=== PATIENT | female | born 1995 | race American Indian/Alaskan Native ===

== ENCOUNTER 2016-11-22 17:53 | Emergency (ER) | payer MEDICAID ==
[2016-11-22 17:53] VITALS: BMI 21.3
[2016-11-22 18:03] VITALS: BP 97/66; PULSE 96; RESP 20; TEMP 97.9; O2SAT 96
[2016-11-22] MEDS ORDERED: Albuterol-Ipratrop 3 mg / 0.5 (3 ml) UD INH STA (18:23)
--- NOTE | 2016-11-22 18:28 | C.PDOC ---
History Of Present Illness 21 yo female w/PMHx of asthma BIBA for evaluation of asthma exacerbation for past 2 days. Pt reports, developed more chest tightness associated with dry cough and wheezing. Pt admits, was using Neb tx at home without improvement. Otherwise, pt denies recent illness, fever, chills, headache, dizziness, sore throat, CP, dyspnea, sputum production, abd. pain, N/V/D, denies any other active complaints. At the time of evaluation, pt is not in resp. distress. Time Seen by Provider: 11/22/16 17:59 Chief Complaint (Nursing): Shortness Of Breath History Per: Patient Past Medical History Reviewed: Historical Data, Nursing Documentation, Vital Signs Vital Signs: Last Vital Signs Temp 97.9 F 11/22/16 18:01 Pulse 96 H 11/22/16 18:01 Resp 20 11/22/16 18:01 BP 97/66 L 11/22/16 18:01 Pulse Ox 96 11/22/16 18:50 - Medical History PMH: Asthma Denies: Chronic Kidney Disease Surgical History: No Surg Hx - [facility] Procedures DELIVERY OF PRODUCTS OF CONCEPTION, EXTERNAL APPROACH (12/21/15) INTRODUCE OF OTH THERAP SUBST INTO FEM REPROD, VIA OPENING (12/21/15) Family History: States: No Known Family Hx - Social History Hx Tobacco Use: No Hx Alcohol Use: No Hx Substance Use: No - Immunization History Hx Tetanus Toxoid Vaccination: No Hx Influenza Vaccination: No Hx Pneumococcal Vaccination: No Review Of Systems Except As Marked, All Systems Reviewed And Found Negative. Constitutional: Negative for: Fever, Chills ENT: Positive for: Nose Discharge, Nose Congestion. Negative for: Ear Discharge , Throat Pain Cardiovascular: Negative for: Chest Pain, Edema, Light Headedness Respiratory: Positive for: Cough, Shortness of Breath, Wheezing. Negative for: Sputum Gastrointestinal: Negative for: Nausea, Vomiting, Abdominal Pain, Diarrhea Genitourinary: Negative for: Dysuria Skin: Negative for: Rash Neurological: Negative for: Weakness, Numbness, Altered Mental Status, Headache , Dizziness Physical Exam - Physical Exam Appears: Well, Non-toxic, No Acute Distress Skin: Normal Color, Warm, Dry, No Rash Eye(s): bilateral: PERRL Nose: No Flaring, Discharge (B/L nasal congestion) Throat: Normal, No Erythema, No Exudate, No Drooling Neck: Supple Cardiovascular: Rhythm Regular Respiratory: No Decreased Breath Sounds, No Accessory Muscle Use, No Rales, No Rhonchi, No Stridor, Wheezing (scattered wheezing Right base) Gastrointestinal/Abdominal: Soft, No Tenderness Back: Normal Inspection Extremity: No Pedal Edema Neurological/Psych: Oriented x3, Normal Speech ED Course And Treatment O2 Sat by Pulse Oximetry: 96 Pulse Ox Interpretation: Normal Progress Note: On re-evaluation, pt is afebrile, hemodynamicaly stable. Non- toxic. PusleOx 96% RA. ENT: no acute findings. Lungs: mod improvement in wheezing, BS equal B/L. Abd: benign. Pt has clinical findings c/w asthma exacerbation. Ref. to F/u with PMD, Pulm in 2-3 days for re-eval. return if any new changes. Disposition Counseled Patient/Family Regarding: Diagnosis, Need For Followup, Rx Given - Disposition Referrals: Jun Lugo MD [Staff Provider] - Disposition: HOME/ ROUTINE Disposition Time: 18:45 Condition: STABLE Additional Instructions: Encourage fluids Take medication as prescribed Follow up with PMD and Pulmonology in 2-3 days for re-evaluation. Return to ED if any worsening or new changes. Prescriptions: Albuterol 0.083% [Albuterol 0.083% Inhal Randa (2.5 mg/3 ml) UD] 2.5 mg IH Q6 #50 neb Albuterol HFA [Ventolin HFA 90 mcg/actuation (8 g)] 1 puff IH Q6 #1 inhaler Loratadine [Claritin] 10 mg PO DAILY #20 tab Prednisone [Deltasone] 40 mg PO DAILY #6 tablet Instructions: Asthma (ED) - Clinical Impression Clinical Impression: Asthma
[2016-11-22] MEDS ORDERED: Albuterol-Ipratrop 3 mg / 0.5 (3 ml) UD ONE (18:33)
== END 2016-11-22 18:59 | disposition home or self-care (01) ==
LOC: C.ER 17:53
DX: J45.909 Unspecified asthma, uncomplicated (principal)

== ENCOUNTER 2016-12-16 18:57 | Emergency (ER) | payer MEDICAID ==
[2016-12-16 18:57] VITALS: BMI 21.3
[2016-12-16 19:08] VITALS: O2SAT 100
--- NOTE | 2016-12-16 20:18 | C.PDOC ---
History Of Present Illness 21 y/o F c PMHx asthma p/w chest pain x 3 days. Pain is L sided chest, sharp, occurring at rest. Denies fever, cough, nausea, diaphoresis. Denies leg swelling , recent travel, OCP use, recent surgery/trauma, previous DVT/PE. Time Seen by Provider: 12/16/16 20:02 Chief Complaint (Nursing): Chest Pain Past Medical History Vital Signs: Last Vital Signs Temp 98.5 F 12/16/16 19:07 Pulse 80 12/16/16 19:07 Resp 20 12/16/16 19:07 BP 96/61 L 12/16/16 19:07 Pulse Ox 100 12/16/16 21:31 - Medical History PMH: Asthma Denies: Chronic Kidney Disease - [facility] Procedures DELIVERY OF PRODUCTS OF CONCEPTION, EXTERNAL APPROACH (12/21/15) INTRODUCE OF OTH THERAP SUBST INTO FEM REPROD, VIA OPENING (12/21/15) Family History: States: Unknown Family Hx - Social History Hx Tobacco Use: No Hx Alcohol Use: No Hx Substance Use: No - Immunization History Hx Tetanus Toxoid Vaccination: No Hx Influenza Vaccination: No Hx Pneumococcal Vaccination: No Review Of Systems Except As Marked, All Systems Reviewed And Found Negative. Constitutional: Negative for: Fever Respiratory: Negative for: Shortness of Breath Physical Exam - Physical Exam Additional Physical Exam Comments: Constitutional: No acute distress. Head: Normocephalic. Atraumatic. Eyes: PERRL. ENT: Moist mucous membranes. Neck: Supple. Cardiovascular: Regular rate. Radial pulse 2+ bilaterally. Chest: No tenderness. Respiratory: Clear to auscultation bilaterally. GI: Soft. Nontender. Nondistended. Back: No CVA tenderness. Musculoskeletal: No tenderness or swelling of extremities. Skin: No rash. Neurologic: Alert, no focal deficit. ED Course And Treatment - Laboratory Results Result Diagrams: 12/16/16 20:30 12/16/16 20:30 O2 Sat by Pulse Oximetry: 100 Medical Decision Making Medical Decision Making: EKG Sinus rhythm, 70 bpm, no ST elevations. PERC negative. Will check labs, CXR. Likely d/c, f/u PMD. CXR negative for infiltrate, PTX, rib fracture. Labs unremarkable. Will discharge home, f/u PMD, return to ER for worsening pain , dyspnea, cough, fever. Disposition - Disposition Disposition: HOME/ ROUTINE Disposition Time: 21:31 Condition: STABLE Instructions: Chest Pain (ED) - Clinical Impression Clinical Impression: Chest pain
[2016-12-16 20:40] LABS: BASO % 0.5 % (0.0-2.0); EOS # 0.2 K/uL (0.0-0.7); EOS % 4.5 % (0.0-4.0); LYMPH % 51.1 % (20.0-40.0); MEAN CORPUSCULAR HEMOGLOBIN 27.4 pg (27.0-31.0); MEAN CORPUSCULAR HGB CONC 32.2 g/dL (33.0-37.0); MEAN PLATELET VOLUME 7.5 fL (7.2-11.7); MONO # 0.3 K/uL (0.0-0.8); MONO % 8.2 % (0.0-10.0); NRBC % 0.1 % (0.0-2.0); RED CELL DISTRIBUTION WIDTH 13.7 % (11.5-14.5)
[2016-12-16 20:47] LABS: MEAN CELL VOLUME 85.3 fL (81.0-99.0)
[2016-12-16 20:50] LABS: CHLORIDE 104 mmol/L (98-107); POTASSIUM 3.3 mmol/L (3.6-5.2); SODIUM 143 mmol/L (132-148)
[2016-12-16 20:52] LABS: BILIRUBIN,TOTAL 0.7 mg/dL (0.2-1.3); GFR AFRICAN-AMERICAN > 60
[2016-12-16 20:53] LABS: ALB/GLOB RATIO 1.1 (1.0-2.1); ALKALINE PHOSPHATASE 43 U/L (38-126); ALT/SGPT 23 U/L (9-52); AST/SGOT 26 U/L (14-36); BLOOD UREA NITROGEN 7 mg/dL (7-17); CALCIUM 9.1 mg/dl (8.6-10.4); CARBON DIOXIDE 29 mmol/L (22-30); GLUCOSE,RANDOM 89 mg/dL (65-105); TOTAL PROTEIN 7.6 g/dL (6.3-8.3)
[2016-12-16 21:49] VITALS: BP 105/68; PULSE 62; RESP 18; TEMP 98.6
--- NOTE | 2016-12-17 08:53 | RAD ---
HISTORY: chest pain COMPARISON: No prior. TECHNIQUE: Chest PA and lateral FINDINGS: LUNGS: No active pulmonary disease. PLEURA: No significant pleural effusion identified. No pneumothorax apparent. CARDIOVASCULAR: Normal. OSSEOUS STRUCTURES: No significant abnormalities. VISUALIZED UPPER ABDOMEN: Normal. OTHER FINDINGS: None. IMPRESSION: No active disease.
--- NOTE | 2016-12-18 14:27 | CARD ---
APPROVED REPORT EKG Measurement Heart [id number] <Conclusion> Normal sinus rhythm RSR' or QR pattern in V1 suggests right ventricular conduction delay Abnormal ECG
== END 2016-12-16 21:48 | disposition home or self-care (01) ==
LOC: C.ER 18:57
DX: R07.9 Chest pain, unspecified (principal)
CPT/HCPCS: 71020; 80053; 82550; 82553; 84484; 85025; 96374; 99284; J1885

== ENCOUNTER 2017-03-12 16:39 | Emergency (ER) | payer MEDICAID ==
[2017-03-12 17:24] VITALS: BMI 17.2
[2017-03-12 17:29] VITALS: BP 108/72; PULSE 86; RESP 18; TEMP 98.8; O2SAT 98
--- NOTE | 2017-03-12 18:05 | C.PDOC ---
History Of Present Illness 21 yr old female presents to the ER stating she is late with her menses and thinks she may be . She admits to mild suprapubic discomfort. LMP was 02/06 - she did not take any home test. Patient denies fever, nausea, vomiting, diarrhea, dysuria, vaginal bleeding/discharge. Time Seen by Provider: 03/12/17 16:56 Chief Complaint (Nursing): Abdominal Pain History Per: Patient History/Exam Limitations: no limitations Onset/Duration Of Symptoms: Days Severity: Mild Past Medical History Reviewed: Historical Data, Nursing Documentation, Vital Signs Vital Signs: Last Vital Signs Temp 98.8 F 03/12/17 17:26 Pulse 86 03/12/17 17:26 Resp 18 03/12/17 17:26 BP 108/72 03/12/17 17:26 Pulse Ox 98 03/12/17 18:44 - Medical History PMH: Asthma - [facility] Procedures DELIVERY OF PRODUCTS OF CONCEPTION, EXTERNAL APPROACH (12/21/15) INTRODUCE OF OTH THERAP SUBST INTO FEM REPROD, VIA OPENING (12/21/15) Family History: States: No Known Family Hx - Social History Hx Tobacco Use: No Hx Alcohol Use: No Hx Substance Use: No - Immunization History Hx Tetanus Toxoid Vaccination: No Hx Influenza Vaccination: No Hx Pneumococcal Vaccination: No Review Of Systems Except As Marked, All Systems Reviewed And Found Negative. Constitutional: Negative for: Fever Gastrointestinal: Positive for: Abdominal Pain (Suprapubic discomfort). Negative for: Nausea, Vomiting, Diarrhea Genitourinary: Negative for: Dysuria, Hematuria, Vaginal Discharge, Vaginal Bleeding Neurological: Negative for: Weakness, Numbness Physical Exam - Physical Exam Appears: Well, Non-toxic, No Acute Distress Skin: Normal Color, Warm, Dry, No Rash Oral Mucosa: Moist Cardiovascular: Rhythm Regular Respiratory: Normal Breath Sounds, No Rales, No Rhonchi, No Stridor, No Wheezing Gastrointestinal/Abdominal: Normal Exam, Bowel Sounds, Soft, No Tenderness Back: No CVA Tenderness Extremity: Normal ROM, No Swelling Neurological/Psych: Oriented x3 ED Course And Treatment O2 Sat by Pulse Oximetry: 98 (RA) Pulse Ox Interpretation: Normal Progress Note: PLAN: Upreg and UA ordered and reviewed. UPreg (+). On exam, abdomen is soft and nontender. UA shows mild UTI - Rxs for vitamins and Macrobid given. Patient instructed to follow up with her client administrator within 1 week. She understands she should return to ED if she has any concerning symptoms. Reevaluation Time: 18:05 Reassessment Condition: Improved Disposition Counseled Patient/Family Regarding: Diagnosis, Need For Followup, Rx Given - Disposition Referrals: [facility] [Outside] [facility] [Outside] Jun Lugo MD [Staff Provider] - Disposition: HOME/ ROUTINE Disposition Time: 18:05 Condition: STABLE Additional Instructions: FOLLOW UP WITH YOUR SPECIAL DIET COOK WITHIN 1 WEEK RETURN TO ER IF YOU HAVE ANY CONCERNING SYMPTOMS Prescriptions: Nitrofurantoin Macrocrystals [Macrobid] 1 cap PO BID #14 cap Multivit/Folic Acid/I [ Plus] 1 tab PO DAILY #30 tab Instructions: (ED), Urinary Tract Infection in (ED) Forms: [employer] (Welsh) Print Language: JAPANESE - POA Present On Arrival: None - Clinical Impression Clinical Impression: , UTI (urinary tract infection) - Scribe Statement The provider has reviewed the documentation as recorded by the Annabelleibe Karo Thayer Provider Attestation: All medical record entries made by the Scribe were at my direction and personally dictated by me. I have reviewed the chart and agree that the record accurately reflects my personal performance of the history, physical exam, medical decision making, and the department course for this patient. I have also personally directed, reviewed, and agree with the discharge instructions and disposition.
[2017-03-12 18:06] LABS: RBC URINE 1 /hpf (0-3); URINE BACTERIA RARE (<OCC); URINE BILIRUBIN NEGATIVE (NEGATIVE); URINE BLOOD NEGATIVE (NEGATIVE); URINE COLOR Yellow (YELLOW); URINE GLUCOSE (UA) NORMAL (Normal); URINE KETONE NEGATIVE (NEGATIVE); URINE LEUKOCYTE ESTERASE NEG Leu/uL (Negative); URINE PROTEIN 1+ mg/dL (NEGATIVE); URINE UROBILINOGEN NORMAL mg/dL (0.2-1.0); WBC URINE 2 /hpf (0-5)
== END 2017-03-12 18:14 | disposition home or self-care (01) ==
LOC: C.ER 16:39
DX: O23.41 Unspecified infection of urinary tract in pregnancy, first trimester (principal); Z3A.00 Weeks of gestation of pregnancy not specified

== ENCOUNTER 2017-06-15 18:51 | Emergency (ER) | payer MEDICAID ==
[2017-06-15 18:52] VITALS: BMI 17.2
[2017-06-15 19:28] VITALS: BP 112/77; PULSE 80; RESP 16; TEMP 98.6; O2SAT 99
[2017-06-15] MEDS ORDERED: Permethrin 1% Kit 59 ML BOTTLE TOP STA (19:31)
--- NOTE | 2017-06-15 19:54 | C.PDOC ---
History Of Present Illness 21yo female brought to ED by EMS for evaluation of lice in her hair. Patient denies any medical complaints. Time Seen by Provider: 06/15/17 19:31 Chief Complaint (Nursing): Medical Clearance History Per: Patient History/Exam Limitations: no limitations Past Medical History Reviewed: Historical Data, Nursing Documentation, Vital Signs Vital Signs: Last Vital Signs Temp 98.6 F 06/15/17 19:26 Pulse 80 06/15/17 19:26 Resp 16 06/15/17 19:26 BP 112/77 06/15/17 19:26 Pulse Ox 99 06/15/17 19:54 - Medical History PMH: Asthma Denies: Chronic Kidney Disease - [facility] Procedures DELIVERY OF PRODUCTS OF CONCEPTION, EXTERNAL APPROACH (12/21/15) INTRODUCE OF OTH THERAP SUBST INTO FEM REPROD, VIA OPENING (12/21/15) Family History: States: Unknown Family Hx - Social History Hx Tobacco Use: No Hx Alcohol Use: No Hx Substance Use: No - Immunization History Hx Tetanus Toxoid Vaccination: No Hx Influenza Vaccination: No Hx Pneumococcal Vaccination: No Review Of Systems Constitutional: Positive for: Other (lice in hair) Physical Exam - Physical Exam Appears: Non-toxic, No Acute Distress Skin: Normal Color Head: Other (mild lice infestation in hair) ED Course And Treatment O2 Sat by Pulse Oximetry: 99 Medical Decision Making Medical Decision Making: lice in hair Disposition Doctor Will See Patient In The: Office Counseled Patient/Family Regarding: Studies Performed, Diagnosis - Disposition Disposition: HOME/ ROUTINE Disposition Time: 19:54 Condition: GOOD Instructions: Body Lice (ED) Forms: [employer] (Upper Sorbian) - Clinical Impression Clinical Impression: Lice infestation - Scribe Statement The provider has reviewed the documentation as recorded by the Alpesh Hodge Provider Attestation: All medical record entries made by the Alpesh were at my direction and personally dictated by me. I have reviewed the chart and agree that the record accurately reflects my personal performance of the history, physical exam, medical decision making, and the department course for this patient. I have also personally directed, reviewed, and agree with the discharge instructions and disposition.
== END 2017-06-15 20:18 | disposition home or self-care (01) ==
LOC: C.ER 18:51
DX: B85.2 Pediculosis, unspecified (principal)

== ENCOUNTER 2017-06-16 20:43 | Emergency (ER) | payer MEDICAID ==
[2017-06-16 20:43] VITALS: BMI 17.2
[2017-06-16 21:10] VITALS: BP 104/71; PULSE 93; TEMP 98; O2SAT 100
--- NOTE | 2017-06-16 21:34 | C.PDOC ---
History Of Present Illness 21 yr old female presents to the ER stating she was seen at [facility] yesterday and was diagnosed with head lice. Patient was given treatment to use at home and states she has used it twice so far. Patient reports she lives in a long term and needs a clearance to return. Patient denies fever, headache or rash. Time Seen by Provider: 06/16/17 21:15 Chief Complaint (Nursing): Abnormal Skin Integrity History Per: Patient History/Exam Limitations: no limitations Onset/Duration Of Symptoms: Days Past Medical History Reviewed: Historical Data, Nursing Documentation, Vital Signs Vital Signs: Last Vital Signs Temp 98.0 F 06/16/17 21:08 Pulse 93 H 06/16/17 21:08 Resp 18 06/16/17 21:08 BP 104/71 06/16/17 21:08 Pulse Ox 100 06/16/17 21:37 - Medical History PMH: Asthma - [facility] Procedures DELIVERY OF PRODUCTS OF CONCEPTION, EXTERNAL APPROACH (12/21/15) INTRODUCE OF OTH THERAP SUBST INTO FEM REPROD, VIA OPENING (12/21/15) Family History: States: No Known Family Hx - Social History Hx Tobacco Use: No Hx Alcohol Use: No Hx Substance Use: No - Immunization History Hx Tetanus Toxoid Vaccination: No Hx Influenza Vaccination: No Hx Pneumococcal Vaccination: No Review Of Systems Except As Marked, All Systems Reviewed And Found Negative. Constitutional: Negative for: Fever Skin: Negative for: Rash Neurological: Negative for: Headache Physical Exam - Physical Exam Appears: Non-toxic, No Acute Distress Skin: Warm, Dry, No Rash, Other (Scalp appears clear. No lice visulized.) Head: Atraumatic, Normacephalic Eye(s): bilateral: Normal Inspection, PERRL, EOMI Extremity: Normal ROM, No Swelling Neurological/Psych: Oriented x3, Normal Speech ED Course And Treatment O2 Sat by Pulse Oximetry: 100 (RA) Pulse Ox Interpretation: Normal Progress Note: Scalp appears clear. No lice is visulized. Patient is cleared to return to the long term. 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 - Scribe Statement The provider has reviewed the documentation as recorded by the Scribe Karo Thayer All medical record entries made by the Scribe were at my direction and personally dictated by me. I have reviewed the chart and agree that the record accurately reflects my personal performance of the history, physical exam, medical decision making, and the department course for this patient. I have also personally directed, reviewed, and agree with the discharge instructions and disposition.
[2017-06-16 22:02] VITALS: RESP 20
== END 2017-06-16 22:01 | disposition home or self-care (01) ==
LOC: C.ER 20:43
DX: Z00.8 Encounter for other general examination (principal)

== ENCOUNTER 2017-08-09 19:37 | Emergency (ER) | payer MEDICAID ==
[2017-08-09 19:38] VITALS: BMI 17.2
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
[2017-08-09 21:51] VITALS: BP 103/63; PULSE 90; RESP 20; TEMP 99.6; O2SAT 100
== END 2017-08-09 21:51 | disposition home or self-care (01) ==
LOC: C.ER 19:37 → EDBD 19:37 → SUPCPDRO 19:37 → C.ER 21:51
DX: S05.32XA Ocular laceration without prolapse or loss of intraocular tissue, left eye, initial encounter (principal); S09.90XA Unspecified injury of head, initial encounter; Y04.0XXA Assault by unarmed brawl or fight, initial encounter; J11.1 Influenza due to unidentified influenza virus with other respiratory manifestations

== ENCOUNTER 2017-10-25 01:50 | Emergency (ER) | payer MEDICAID ==
[2017-10-25 01:51] VITALS: BMI 17.2
[2017-10-25 02:20] LABS: SQUAMOUS EPITHIAL < 1 /hpf (0-5); URINE BILIRUBIN NEGATIVE (NEGATIVE); URINE BLOOD NEGATIVE (NEGATIVE); URINE CLARITY Clear (Clear); URINE COLOR Yellow (YELLOW); URINE GLUCOSE (UA) NORMAL (Normal); URINE LEUKOCYTE ESTERASE NEG Leu/uL (Negative); URINE PROTEIN 1+ mg/dL (NEGATIVE)
[2017-10-25 02:27] LABS: HCG,QUALITATIVE URINE NEGATIVE (NEGATIVE)
--- NOTE | 2017-10-25 02:28 | C.PDOC ---
History Of Present Illness 22 yo female come in for evaluation of gradual onset of suprapubic pain for past few hours associated with nausea. Pain is constant, localized, no change with food intake. Pt denies fever, chills, recent illness, sore throat, cough, dyspnea, CP, sOB, V/D, melena, UTI sx, vaginal irritation or discharges. Ambulate to ED for evaluation, not in nay apparent distress. Time Seen by Provider: 10/25/17 02:05 Chief Complaint (Nursing): Abdominal Pain History Per: Patient Past Medical History Reviewed: Historical Data, Nursing Documentation, Vital Signs Vital Signs: Last Vital Signs Temp 98.6 F 10/25/17 04:07 Pulse 83 10/25/17 04:07 Resp 16 10/25/17 04:07 BP 120/76 10/25/17 04:07 Pulse Ox 100 10/25/17 04:07 - Medical History PMH: Asthma Denies: Chronic Kidney Disease Surgical History: Denies: Appendectomy - [facility] Procedures DELIVERY OF PRODUCTS OF CONCEPTION, EXTERNAL APPROACH (12/21/15) INTRODUCE OF OTH THERAP SUBST INTO FEM REPROD, VIA OPENING (12/21/15) Family History: States: Unknown Family Hx - Social History Hx Tobacco Use: No Hx Alcohol Use: No Hx Substance Use: No - Immunization History Hx Tetanus Toxoid Vaccination: No Hx Influenza Vaccination: No Hx Pneumococcal Vaccination: No Review Of Systems Except As Marked, All Systems Reviewed And Found Negative. Constitutional: Negative for: Fever, Chills ENT: Negative for: Throat Pain Cardiovascular: Negative for: Chest Pain Respiratory: Negative for: Cough, Sputum, Wheezing Gastrointestinal: Positive for: Nausea, Abdominal Pain. Negative for: Vomiting , Diarrhea Genitourinary: Negative for: Dysuria, Incontinence Musculoskeletal: Negative for: Neck Pain, Back Pain Skin: Negative for: Rash Neurological: Negative for: Altered Mental Status, Headache, Dizziness Physical Exam - Physical Exam Appears: Well, Non-toxic, No Acute Distress Skin: Normal Color, Warm, Dry, No Rash Head: Normacephalic Eye(s): bilateral: PERRL Nose: No Flaring, No Discharge Oral Mucosa: Moist Throat: No Erythema Neck: Trachea Midline, Supple Cardiovascular: Rhythm Regular Respiratory: No Decreased Breath Sounds, No Accessory Muscle Use, No Stridor, No Wheezing Gastrointestinal/Abdominal: Soft, Tenderness (suprapubic, mod), No Distention, No Guarding, No Rebound Back: No CVA Tenderness Extremity: Normal ROM, No Deformity, No Swelling Neurological/Psych: Oriented x3, Normal Speech ED Course And Treatment - Laboratory Results Result Diagrams: 10/25/17 03:04 10/25/17 03:04 Lab Interpretation: No Acute Changes Urine POC: Negative O2 Sat by Pulse Oximetry: 98 Pulse Ox Interpretation: Normal Progress Note: On re-evaluation, pt is resting comfortably, not in any apaprent distress. AFebrile, hemodynamicaly stable. NOn-toxic. Tolerate Po well in ED. PulseOx 98% RA. ENT: no acute findings. Uvula midline, no edema. neck: Supple , (-) meningeal sign. Lungs: CTA B/L, BS equal B/L. ABd: benign, (-) guarding , (-) rebound, (-) RLQ tenderness. Back: (-) CVA tenderness. Neurologicaly intact. Blood work review and appears normal. UA: (+) WBC, RBC. results review and discussed with pt. Pt advised on signof apendicitis -return to ED at any time if any worsening or new changes in abd. pain. ref. to F/u with PMD in 1-2 days for re-eval, Patient understand and agrees with plan. Disposition Counseled Patient/Family Regarding: Studies Performed, Diagnosis, Need For Followup, Rx Given - Disposition Referrals: Jun Lugo MD [Staff Provider] - Disposition: HOME/ ROUTINE Disposition Time: 03:31 Condition: STABLE Prescriptions: Nitrofurantoin Macrocrystals [Macrobid] 1 cap PO BID #14 cap Instructions: Urinary Tract Infections in Adults Forms: [facility] (Greek) - Clinical Impression Clinical Impression: UTI (urinary tract infection)
[2017-10-25] MEDS ORDERED: Sodium Chloride 0.9% 1,000 ML IV ONE (02:30)
[2017-10-25 03:11] LABS: BASO % 0.1 % (0.0-2.0); EOS # 0.2 K/uL (0.0-0.7); EOS % 1.7 % (0.0-4.0); HEMOGLOBIN 11.9 g/dL (11.0-16.0); LYMPH # 1.6 K/uL (1.0-4.3); MEAN CELL VOLUME 86.5 fL (81.0-99.0); MEAN CORPUSCULAR HEMOGLOBIN 28.4 pg (27.0-31.0); MEAN CORPUSCULAR HGB CONC 32.8 g/dL (33.0-37.0); MEAN PLATELET VOLUME 8.1 fL (7.2-11.7); MONO # 0.8 K/uL (0.0-0.8); MONO % 7.3 % (0.0-10.0); NEUT # 8.1 K/uL (1.8-7.0); NEUT % 75.9 % (50.0-75.0); RBC 4.19 Mil/uL (3.80-5.20); RED CELL DISTRIBUTION WIDTH 13.3 % (11.5-14.5); WHITE BLOOD COUNT 10.6 K/uL (4.8-10.8)
[2017-10-25 03:17] LABS: BLOOD UREA NITROGEN 14 mg/dL (7-17); CALCIUM 9.1 mg/dl (8.6-10.4); GFR AFRICAN-AMERICAN > 60; GFR NON-AFRICAN AMERICAN > 60
[2017-10-25 04:08] VITALS: BP 120/76; PULSE 83; RESP 16; TEMP 98.6
[2017-10-25 06:07] VITALS: O2SAT 98
== END 2017-10-25 04:12 | disposition home or self-care (01) ==
LOC: C.ER 01:50
DX: N39.0 Urinary tract infection, site not specified (principal)
CPT/HCPCS: 80048; 81001; 84703; 85025; 87086; 96361; 96374; 96375; 99284; J1885; J2405; J7040

== ENCOUNTER 2017-12-22 21:56 | Emergency (ER) | payer MEDICAID ==
[2017-12-22 21:56] VITALS: BMI 17.2
[2017-12-22 22:05] VITALS: O2SAT 98
[2017-12-22] MEDS ORDERED: Lidocaine 2% Inj (20ml) INFIL ONE (22:44)
--- NOTE | 2017-12-22 23:41 | C.PDOC ---
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 Quality: Positive for: "Pain" Additional History Per: Prior Records Past Medical History Reviewed: Historical Data, Nursing Documentation, Vital Signs Vital Signs: Last Vital Signs Temp 97 F L 12/22/17 22:02 Pulse 97 H 12/22/17 22:02 Resp 20 12/22/17 22:02 BP Pulse Ox 98 12/22/17 22:02 - Medical History PMH: Asthma - [facility] Procedures DELIVERY OF PRODUCTS OF CONCEPTION, EXTERNAL APPROACH (12/21/15) INTRODUCE OF OTH THERAP SUBST INTO FEM REPROD, VIA OPENING (12/21/15) Family History: States: Unknown Family Hx - Social History Hx Tobacco Use: No Hx Alcohol Use: No Hx Substance Use: No - Immunization History Hx Tetanus Toxoid Vaccination: No Hx Influenza Vaccination: No Hx Pneumococcal Vaccination: No Review Of Systems Except As Marked, All Systems Reviewed And Found Negative. Constitutional: Negative for: Fever ENT: Positive for: Mouth Pain. Negative for: Throat Pain Cardiovascular: Negative for: Chest Pain Respiratory: Negative for: Shortness of Breath Gastrointestinal: Negative for: Vomiting, Abdominal Pain Musculoskeletal: Negative for: Neck Pain Skin: Negative for: Rash Neurological: Negative for: Weakness, Numbness, Headache, Dizziness Physical Exam - Physical Exam Appears: Non-toxic, No Acute Distress Skin: Normal Color, Warm, Dry, No Rash Head: Atraumatic, Normacephalic Eye(s): bilateral: PERRL, EOMI Lips: Other (Wound on upper and lower lip, not involving vermilion border.) Teeth: Avulsed (two upper incisors angulated inward) Throat: Normal Neck: Normal ROM, No Midline Cervical Tenderness, No Step Off Deformity, Supple Chest: Symmetrical, No Deformity Cardiovascular: Rhythm Regular Respiratory: Normal Breath Sounds, No Accessory Muscle Use Gastrointestinal/Abdominal: Soft, No Tenderness Extremity: Normal ROM, No Deformity Neurological/Psych: Oriented x3, Normal Motor, Normal Sensation ED Course And Treatment O2 Sat by Pulse Oximetry: 98 Pulse Ox Interpretation: Normal Progress Note: After applying local anesthesia using 2% lidocaine, the two upper incisors were reduced back with good alignment. The teeth were then fixed to the adjoining teeth with Dermabond. Reassessment Condition: Improved Disposition Counseled Patient/Family Regarding: Studies Performed, Diagnosis, Need For Followup, Rx Given - Disposition Referrals: Meche Fulton DMD [Staff Provider] - Disposition: HOME/ ROUTINE Disposition Time: 23:45 Condition: STABLE Additional Instructions: Soft diet only. Follow up with a Dentist as soon as possible tomorrow for further evaluation and treatment. Return to the ER if you develop worsening of symptoms or if you have any other concerns. Prescriptions: Amoxicillin 875 mg PO BID #20 tab Ibuprofen [Motrin Tab] 600 mg PO Q8 PRN #30 tab PRN Reason: Pain, Moderate (4-7) Instructions: Fractured Tooth (DC) Forms: [employer] (Vietnamese) - Clinical Impression Clinical Impression: Avulsion of tooth due to trauma
[2017-12-23] MEDS ORDERED: Amoxicillin-Clav 500-125 mg Tab PO ONE
[2017-12-23 00:06] VITALS: BP 124/84; PULSE 88; RESP 14; TEMP 98
== END 2017-12-23 00:08 | disposition home or self-care (01) ==
LOC: C.ER 21:56
DX: S03.2XXA Dislocation of tooth, initial encounter (principal); W10.9XXA Fall (on) (from) unspecified stairs and steps, initial encounter
CPT/HCPCS: 96372; 99285; J1885

== ENCOUNTER 2018-05-13 13:47 | Emergency (ER) | payer MEDICAID ==
[2018-05-13 13:58] VITALS: BMI 19.7
[2018-05-13] MEDS ORDERED: Albuterol-Ipratrop 3 mg / 0.5 (3 ml) UD INH STA (14:49)
--- NOTE | 2018-05-13 14:50 | C.PDOC ---
History Of Present Illness 22 y/o female with PMH of asthma presents to the ED c/o chest pain x 1 day. Pt describes pain as sharp located on the right side of her chest worse with inspiration that began last night. Associated symptoms of intermittent lighthea dedness, diarrhea, lower abdominal cramping, and headache. Tolerating PO per baseline but does not drink much water throughout the day. Has not taken any medication for pain. Positive sick contact, as pt presents to the ED with her son, who is also a patient with complaints of URI. Denies fever, chills, cough, nasal congestion, SOB, nausea, vomiting, back pain, urinary symptoms, rash, neck pain, diaphoresis, palpitations, jaw pain, arm pain. Time Seen by Provider: 05/13/18 14:38 Chief Complaint (Nursing): Chest Pain Past Medical History Reviewed: Historical Data, Nursing Documentation, Vital Signs - Medical History PMH: Asthma Denies: Chronic Kidney Disease Surgical History: Denies: Appendectomy - [facility] Procedures DELIVERY OF PRODUCTS OF CONCEPTION, EXTERNAL APPROACH (12/21/15) INTRODUCE OF OTH THERAP SUBST INTO FEM REPROD, VIA OPENING (12/21/15) Family History: States: Unknown Family Hx - Social History Hx Tobacco Use: No Hx Alcohol Use: No Hx Substance Use: No - Immunization History Hx Tetanus Toxoid Vaccination: No Hx Influenza Vaccination: No Hx Pneumococcal Vaccination: No Review Of Systems Except As Marked, All Systems Reviewed And Found Negative. Constitutional: Negative for: Fever, Chills Eyes: Negative for: Vision Change ENT: Negative for: Ear Pain, Nose Discharge, Nose Congestion, Throat Pain, Throat Swelling Cardiovascular: Positive for: Chest Pain, Light Headedness. Negative for: Palpitations, Edema Respiratory: Negative for: Cough, Shortness of Breath, Wheezing Gastrointestinal: Positive for: Abdominal Pain, Diarrhea. Negative for: Nausea, Vomiting, Constipation Genitourinary: Negative for: Dysuria, Frequency, Incontinence, Vaginal Discharge, Vaginal Bleeding, Pelvic Pain Musculoskeletal: Negative for: Neck Pain, Shoulder Pain, Arm Pain, Back Pain Skin: Negative for: Rash Neurological: Positive for: Headache. Negative for: Weakness, Numbness, Dizziness Physical Exam - Physical Exam Appears: Well, Non-toxic, No Acute Distress Skin: Normal Color, Warm, Dry Head: Atraumatic, Normacephalic, No Tenderness Eye(s): bilateral: Normal Inspection, PERRL, EOMI Ear(s): Bilateral: Normal Nose: Normal Oral Mucosa: Moist Throat: Normal, No Erythema, No Exudate, No Drooling Neck: Normal, Normal ROM, No Other (meningeal signs) Lymphatic: Normal Exam, No Adenopathy Cardiovascular: Rhythm Regular Respiratory: Normal Breath Sounds, Decreased Breath Sounds (right side), No Rales, No Rhonchi, No Wheezing Gastrointestinal/Abdominal: Normal Exam, Bowel Sounds (normoactive), Soft, No Tenderness Back: Normal Inspection, No CVA Tenderness, No Paraspinal Tenderness Extremity: Normal ROM, No Tenderness, No Pedal Edema, No Calf Tenderness, Capillary Refill (<2s), No Deformity, No Swelling Extremity: Bilateral: Atraumatic, No Pedal Edema, Normal Color And Temperature, Normal ROM Pulses: Left Radial: Normal, Right Radial: Normal (rate 76), Left Dorsalis Pedis: Normal, Right Dorsalis Pedis: Normal Neurological/Psych: Oriented x3, Normal Speech, Normal Cognition, Normal Cranial Nerves, Normal Motor, Normal Sensation Gait: Steady ED Course And Treatment - Laboratory Results Result Diagrams: 05/13/18 15:15 05/13/18 15:15 O2 Sat by Pulse Oximetry: 100 (RA) Pulse Ox Interpretation: Normal - Other Rad CXR X-Ray: Viewed By Me, Read By Radiologist Interpretation: FINDINGS: LUNGS: Dense opacification of the medial right lower lobe suspicious for consolidation such as pneumonia. Please note that chest x- ray has limited sensitivity for the detection of pulmonary masses. PLEURA: No significant pleural effusion identified. No definite pneumothorax . CARDIOVASCULAR: The cardiomediastinal silhouette appears within normal limits of size. No atherosclerotic calcification present. OSSEOUS STRUCTURES: No acute osseous abnormality identified. VISUALIZED UPPER ABDOMEN: Unremarkable. OTHER FINDINGS: None. IMPRESSION: Dense opacification of the medial right lower lobe suspicious for consolidation such as pneumonia. Correlate clinically. If indicated, CT of the chest may be considered. Otherwise, recommend follow-up to assess for complete resolution upon completion of treatment. Medical Decision Making Medical Decision Making: Initial Plan: * EKG * CBC, CMP, Troponin, D-dimer * UA, culture * IVF * Duoneb * Orthostatics EKG: rate 75; NSR; normal intervals; no ST elevation or signs of ischemia Reviewed by ED attending, viewed by me CBC: wnl CMP: BUN 19, otherwise unremarkable Troponin: neg D-Dimer: neg UA: ketones and protein, otherwise unremarkable Orthostatics positive for lightheadedness on standing Will hydrate with IVF On re-evaluation patient states that she is feeling much better after fluid administration and would like to go home. Patient is well appearing and tolerating PO without difficulty. Vital signs stable, re-check of pulse 76 on right radial while patient laying supine. Case and diagnostic results discussed with Dr. Beltran, who recommends discharge home with Levaquin prescription and followup with primary doctor for re-evaluation and repeat CXR. States no need for any further workup at this time. Plan of care discussed with patient, and strict instructions given regarding prescriptions, importance of follow up, and signs to return to Emergency Department, to include fever, chills, vomiting, difficulty breathing or any other new/worsening symptoms. Patient verbalizes understanding of discussion. Patient A&Ox3, ambulating with steady gait, stable for discharge home. Impression: Pneumonia Disposition Discussed With DrMati: Christine Beltran Comment: Recommends discharge home with Levaquin prescription and followup with primary doctor. - Disposition Referrals: [facility] at [facility] [Outside] Disposition: HOME/ ROUTINE Disposition Time: 17:30 Condition: IMPROVED Additional Instructions: Increase fluids to rehydrate Take antibiotic once daily for 4 days starting tomorrow Use albuterol inhaler 2 puffs every 6 hours Followup with primary doctor within 2 days Return to ER for any new/worsening symptoms Prescriptions: Ibuprofen [Motrin Tab] 600 mg PO Q8H PRN #30 tab PRN Reason: Pain, Moderate (4-7) levoFLOXacin [Levaquin] 750 mg PO DAILY #5 tab Instructions: Pneumonia in Adults Forms: [facility] (Sinhala), Work Excuse, General Discharge Instructions - Clinical Impression Clinical Impression: Pneumonia - 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 - Scribe Statement The provider has reviewed the documentation as recorded by the Scribe (Danisha Arredondo) All medical record entries made by the Scribe were at my direction and personally dictated by me. I have reviewed the chart and agree that the record accurately reflects my personal performance of the history, physical exam, medical decision making, and the department course for this patient. I have also personally directed, reviewed, and agree with the discharge instructions and disposition.
[2018-05-13] MEDS ORDERED: Sodium Chloride 0.9% 1,000 ML IV ONE ×2 (15:00→15:52)
--- NOTE | 2018-05-13 15:08 | RAD ---
HISTORY: chest pain COMPARISON: Chest x-ray performed 12/16/16 TECHNIQUE: Chest PA and lateral FINDINGS: LUNGS: Dense opacification of the medial right lower lobe suspicious for consolidation such as pneumonia. Please note that chest x-ray has limited sensitivity for the detection of pulmonary masses. PLEURA: No significant pleural effusion identified. No definite pneumothorax . CARDIOVASCULAR: The cardiomediastinal silhouette appears within normal limits of size. No atherosclerotic calcification present. OSSEOUS STRUCTURES: No acute osseous abnormality identified. VISUALIZED UPPER ABDOMEN: Unremarkable. OTHER FINDINGS: None. IMPRESSION: Dense opacification of the medial right lower lobe suspicious for consolidation such as pneumonia. Correlate clinically. If indicated, CT of the chest may be considered. Otherwise, recommend follow-up to assess for complete resolution upon completion of treatment.
[2018-05-13 15:20] LABS: BASO % 0.5 % (0.0-2.0); HEMOGLOBIN 11.6 g/dL (11.0-16.0); LYMPH # 1.5 K/uL (1.0-4.3); LYMPH % 36.5 % (20.0-40.0); MEAN CELL VOLUME 85.4 fL (81.0-99.0); MEAN CORPUSCULAR HEMOGLOBIN 28.2 pg (27.0-31.0); MEAN PLATELET VOLUME 7.9 fL (7.2-11.7); MONO # 0.4 K/uL (0.0-0.8); MONO % 9.5 % (0.0-10.0); NEUT # 2.2 K/uL (1.8-7.0); NEUT % 52.5 % (50.0-75.0); NRBC % 0.1 % (0.0-2.0); RBC 4.12 Mil/uL (3.80-5.20); RED CELL DISTRIBUTION WIDTH 14.3 % (11.5-14.5); WHITE BLOOD COUNT 4.2 K/uL (4.8-10.8)
[2018-05-13] MEDS ORDERED: Albuterol-Ipratrop 3 mg / 0.5 (3 ml) UD ONE (15:23)
[2018-05-13 15:27] LABS: SQUAMOUS EPITHIAL 1 /hpf (0-5); URINE BILIRUBIN NEGATIVE (NEGATIVE); URINE BLOOD NEGATIVE (NEGATIVE); URINE CLARITY Hazy (Clear); URINE COLOR Amber (YELLOW); URINE GLUCOSE (UA) NORMAL (Normal); URINE LEUKOCYTE ESTERASE NEG Leu/uL (Negative); URINE PROTEIN 2+ mg/dL (NEGATIVE); URINE UROBILINOGEN NORMAL mg/dL (0.2-1.0)
[2018-05-13 15:35] LABS: ALB/GLOB RATIO 1.3 (1.0-2.1); ALBUMIN 4.6 g/dL (3.5-5.0); ALT/SGPT 39 U/L (9-52); AST/SGOT 36 U/L (14-36); BLOOD UREA NITROGEN 19 mg/dL (7-17); CALCIUM 9.4 mg/dl (8.6-10.4); GFR NON-AFRICAN AMERICAN > 60
[2018-05-13 15:58] VITALS: RESP 20
[2018-05-13] MEDS ORDERED: Sodium Chloride 0.9% 1,000 ML ONE (16:04)
[2018-05-13 17:42] VITALS: BP 105/69; PULSE 97; TEMP 98.3; O2SAT 100
--- NOTE | 2018-05-17 12:36 | CARD ---
APPROVED REPORT Date of service: 05/13/2018 EKG Measurement Heart [id number] 126P45 [id number] <Conclusion> Normal sinus rhythm RSR' or QR pattern in V1 suggests right ventricular conduction delay Borderline ECG
== END 2018-05-13 18:06 | disposition home or self-care (01) ==
LOC: C.ER 13:47
DX: J18.9 Pneumonia, unspecified organism (principal)
CPT/HCPCS: 36415; 71046; 80053; 81001; 84484; 85025; 85378; 87086; 93005; 94640; 96360; 99285; J7030

== ENCOUNTER 2018-06-02 15:49 | Emergency (ER) | payer MEDICAID ==
[2018-06-02 15:49] VITALS: BMI 19.7
--- NOTE | 2018-06-02 16:08 | C.PDOC ---
History Of Present Illness 22 y/o female presents to the ED complaining of sharp, reproducible chest pain for the past couple of days. Of note patient recently completed antibiotics for pneumonia, diagnosed here. Patient denies any coughing, fever, SOB, or dizziness. Time Seen by Provider: 06/02/18 15:57 Chief Complaint (Nursing): Chest Pain History Per: Patient History/Exam Limitations: no limitations Onset/Duration Of Symptoms: Days Current Symptoms Are (Timing): Still Present Quality: Sharp Past Medical History Reviewed: Historical Data, Nursing Documentation, Vital Signs - Medical History PMH: Asthma Denies: Chronic Kidney Disease Surgical History: Denies: Appendectomy - [facility] Procedures DELIVERY OF PRODUCTS OF CONCEPTION, EXTERNAL APPROACH (12/21/15) INTRODUCE OF OTH THERAP SUBST INTO FEM REPROD, VIA OPENING (12/21/15) Family History: States: Unknown Family Hx - Social History Hx Tobacco Use: No Hx Alcohol Use: No Hx Substance Use: No - Immunization History Hx Tetanus Toxoid Vaccination: No Hx Influenza Vaccination: No Hx Pneumococcal Vaccination: No Review Of Systems Except As Marked, All Systems Reviewed And Found Negative. Constitutional: Negative for: Fever, Chills Eyes: Negative for: Vision Change Cardiovascular: Positive for: Chest Pain. Negative for: Palpitations Respiratory: Negative for: Cough, Shortness of Breath, Wheezing Gastrointestinal: Negative for: Nausea, Vomiting Neurological: Negative for: Weakness, Dizziness Physical Exam - Physical Exam Appears: Well, Non-toxic, No Acute Distress Skin: Warm, Dry, No Rash Head: Atraumatic, Normacephalic Eye(s): bilateral: Normal Inspection, PERRL, EOMI Oral Mucosa: Moist Neck: Normal ROM Chest: Tenderness (Point tenderness to the right sternal border) Cardiovascular: Rhythm Regular, No Murmur Respiratory: Normal Breath Sounds, No Rales, No Rhonchi, No Wheezing Gastrointestinal/Abdominal: Soft, No Tenderness, No Distention Extremity: Bilateral: Atraumatic, Normal Color And Temperature, Normal ROM Neurological/Psych: Oriented x3, Normal Speech ED Course And Treatment ECG: Interpreted By Me, Viewed By Me ECG Rhythm: Sinus Rhythm Interpretation Of ECG: normal axis and normal intervals Rate From EC (bpm) O2 Sat by Pulse Oximetry: 100 (RA) Pulse Ox Interpretation: Normal - Other Rad CXR X-Ray: Read By Radiologist Interpretation: Accession No. : [id number]. Patient Name / ID : JUAN DIEGO Gay / [id number]. Exam Date : 06/02/2018 16:35:43 ( Approved ). Study Comment : Sex / Age : F / 22Y. Creator : Karolina Helms MD. Dictator : Karolina Helms MD. Cd Mixer Helper : Countersinker : Karolina Helms MD. Approver2 : Report Date : 06/02/2018 16:54:56. My Comment : . HISTORY: r/o infiltrate. COMPARISON: Chest x-ray performed 05/13/18. TECHNIQUE: Chest PA and lateral. FINDINGS: LUNGS: Residual medial right lower lobe consolidation, overall improved since 05/13/18. Please note that chest x-ray has limited sensitivity for the detection of pulmonary masses. PL EURA: No significant pleural effusion identified. No definite pneumothorax . CARDIOVASCULAR: Heart size appears within normal limits. No atherosclerotic calcification present. OSSEOUS STRUCTURES: No acute osseous abnormality identified. VISUALIZED UPPER ABDOMEN: Unremarkable. OTHER FINDINGS: None. IMPRESSION: Residual medial right lower lobe consolidation, overall improved since 05/13/18 Medical Decision Making Medical Decision Making: Impression: Chest pain Initial Plan: --EKG --Repeat CXR Educated patient regarding likely diagnosis and discharge plan. Advised to follow up with PMD/ the clinic for further evaluation. Disposition Counseled Patient/Family Regarding: Studies Performed, Diagnosis, Rx Given - Disposition Referrals: [facility] Nicky Acevedo, [Non-Staff] - Disposition: HOME/ ROUTINE Disposition Time: 17:00 Condition: GOOD Additional Instructions: FER ADAMSON, thank you for letting us take care of you today. The emergency medical care you received today was directed at your acute symptoms. If you were prescribed any medication, please fill it and take as directed. It may take several days for your symptoms to resolve. Return to the Emergency Department if your symptoms worsen, do not improve, or if you have any other problems. Please contact your doctor or call one of the physicians/clinics you have been referred to that are listed on the Patient Visit Information form that is included in your discharge packet. Bring any paperwork you were given at discharge with you along with any medications you are taking to your follow up visit. Our treatment cannot replace ongoing medical care by a primary care provider outside of the emergency department. Thank you for allowing the [facility] team to be part of your care today. Follow up with your primary care doctor in 3-4 days for re-evaluation and further management. Prescriptions: Ibuprofen [Motrin] 600 mg PO Q6 PRN #20 tab PRN Reason: Pain, Moderate (4-7) Instructions: Costochondritis (DC) Forms: [employer] (Yi) - POA Present On Arrival: None - Clinical Impression Clinical Impression: Costochondritis - Scribe Statement The provider has reviewed the documentation as recorded by the Alpesh Myers Provider Attestation: All medical record entries made by the Annabelleibtrisha were at my direction and personally dictated by me. I have reviewed the chart and agree that the record accurately reflects my personal performance of the history, physical exam, medical decision making, and the department course for this patient. I have also personally directed, reviewed, and agree with the discharge instructions and disposition.
--- NOTE | 2018-06-02 16:58 | RAD ---
HISTORY: r/o infiltrate COMPARISON: Chest x-ray performed 05/13/18 TECHNIQUE: Chest PA and lateral FINDINGS: LUNGS: Residual medial right lower lobe consolidation, overall improved since 05/13/18 Please note that chest x-ray has limited sensitivity for the detection of pulmonary masses. PLEURA: No significant pleural effusion identified. No definite pneumothorax . CARDIOVASCULAR: Heart size appears within normal limits. No atherosclerotic calcification present. OSSEOUS STRUCTURES: No acute osseous abnormality identified. VISUALIZED UPPER ABDOMEN: Unremarkable. OTHER FINDINGS: None. IMPRESSION: Residual medial right lower lobe consolidation, overall improved since 05/13/18
[2018-06-02 17:57] VITALS: BP 112/72; PULSE 82; RESP 18; TEMP 98.2; O2SAT 100
--- NOTE | 2018-06-03 22:20 | CARD ---
APPROVED REPORT Date of service: 06/02/2018 EKG Measurement Heart [id number] ND 128P62 [id number] <Conclusion> Normal sinus rhythm Normal ECG
== END 2018-06-02 18:12 | disposition home or self-care (01) ==
LOC: C.ER 15:49
DX: M94.0 Chondrocostal junction syndrome [Tietze] (principal)

== ENCOUNTER 2018-10-07 11:51 | Emergency (ER) | payer MEDICAID ==
[2018-10-07 11:52] VITALS: BMI 19.7
[2018-10-07 12:05] VITALS: RESP 18; O2SAT 100
[2018-10-07 12:35] LABS: HCG,QUALITATIVE URINE NEGATIVE (NEGATIVE)
[2018-10-07 12:39] LABS: SQUAMOUS EPITHIAL 2 /hpf (0-5); URINE BILIRUBIN NEGATIVE (NEGATIVE); URINE BLOOD NEGATIVE (NEGATIVE); URINE CLARITY Hazy (Clear); URINE COLOR Yellow (YELLOW); URINE GLUCOSE (UA) NORMAL (Normal); URINE LEUKOCYTE ESTERASE NEG Leu/uL (Negative); URINE PROTEIN 1+ mg/dL (NEGATIVE)
--- NOTE | 2018-10-07 12:46 | C.PDOC ---
History Of Present Illness 23 y/o female comes in to ED complaining of abdominal cramping pain for the past week, with some vaginal spotting. Patient denies nausea or vomiting. States she had normal bowel movement 2 days ago. Last normal menstrual period was 2 months ago. Time Seen by Provider: 10/07/18 12:07 Chief Complaint (Nursing): Abdominal Pain History Per: Patient History/Exam Limitations: no limitations Onset/Duration Of Symptoms: Days Current Symptoms Are (Timing): Still Present Past Medical History Reviewed: Historical Data, Nursing Documentation, Vital Signs Vital Signs: Last Vital Signs Temp 98.2 F 10/07/18 12:01 Pulse 78 10/07/18 12:01 Resp 18 10/07/18 12:01 BP 96/64 L 10/07/18 12:01 Pulse Ox 100 10/07/18 12:01 - Medical History PMH: Asthma Denies: Chronic Kidney Disease Surgical History: Denies: Appendectomy - [facility] Procedures DELIVERY OF PRODUCTS OF CONCEPTION, EXTERNAL APPROACH (12/21/15) INTRODUCE OF OTH THERAP SUBST INTO FEM REPROD, VIA OPENING (12/21/15) Family History: States: No Known Family Hx - Social History Hx Tobacco Use: No Hx Alcohol Use: No Hx Substance Use: No - Immunization History Hx Tetanus Toxoid Vaccination: No Hx Influenza Vaccination: No Hx Pneumococcal Vaccination: No Review Of Systems Except As Marked, All Systems Reviewed And Found Negative. Constitutional: Negative for: Fever, Chills Gastrointestinal: Positive for: Abdominal Pain. Negative for: Nausea, Vomiting Genitourinary: Positive for: Other (Vaginal spotting). Negative for: Dysuria, Hematuria Physical Exam - Physical Exam Appears: Non-toxic, No Acute Distress Skin: Warm, Dry Head: Atraumatic, Normacephalic Eye(s): bilateral: Normal Inspection Oral Mucosa: Moist Neck: Normal ROM, Supple Chest: Symmetrical, No Tenderness Cardiovascular: Rhythm Regular, No Friction Rub, No Murmur Respiratory: Normal Breath Sounds, No Rales, No Rhonchi, No Wheezing Gastrointestinal/Abdominal: Soft, No Tenderness, No Guarding, No Rebound Back: Normal Inspection, No CVA Tenderness Extremity: Normal ROM, No Swelling Extremity: Bilateral: Atraumatic, Normal ROM Neurological/Psych: Oriented x3, Normal Speech, Normal Motor Gait: Steady ED Course And Treatment - Laboratory Results Result Diagrams: 10/07/18 13:45 10/07/18 13:45 Lab Results: Urine Color Yellow (YELLOW) 10/07/18 12:23 Urine Clarity Hazy (Clear) 10/07/18 12:23 Urine pH 8.0 (5.0-8.0) 10/07/18 12:23 Ur Specific [place] 1.024 (1.003-1.030) 10/07/18 12:23 Urine Protein 1+ mg/dL (NEGATIVE) H 10/07/18 12:23 Urine Glucose (UA) Normal mg/dL (Normal) 10/07/18 12:23 Urine Ketones Negative mg/dL (NEGATIVE) 10/07/18 12:23 Urine Blood Negative (NEGATIVE) 10/07/18 12:23 Urine Nitrate Negative (NEGATIVE) 10/07/18 12:23 Urine Bilirubin Negative (NEGATIVE) 10/07/18 12:23 Urine Urobilinogen 2.0 mg/dL (0.2-1.0) H 10/07/18 12:23 Ur Leukocyte Esterase Neg Cee/uL (Negative) 10/07/18 12:23 Urine WBC (Auto) 4 /hpf (0-5) 10/07/18 12:23 Urine RBC (Auto) 2 /hpf (0-3) 10/07/18 12:23 Ur Squamous Epith Cells 2 /hpf (0-5) 10/07/18 12:23 Urine HCG, Qual Negative (NEGATIVE) 10/07/18 12:23 Urine HCG, Qual Negative (NEGATIVE) 10/07/18 12:23 O2 Sat by Pulse Oximetry: 100 (RA) Pulse Ox Interpretation: Normal Medical Decision Making Medical Decision Making: Plan: --UA --Urine preg On re-exam, the patient reports improvement of symptoms. Lungs are CTA, heart is RRR, abdomen is soft, non-tender and tolerating PO well. Pt is ambulatory in the Ed with steady gait. 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 - Scribe Statement The provider has reviewed the documentation as recorded by the Scribe Masha Richards All medical record entries made by the Annabelleibtrisha were at my direction and personally dictated by me. I have reviewed the chart and agree that the record accurately reflects my personal performance of the history, physical exam, medical decision making, and the department course for this patient. I have also personally directed, reviewed, and agree with the discharge instructions and disposition.
[2018-10-07] MEDS ORDERED: Sodium Chloride 0.9% 1,000 ML IV ONE (12:49)
[2018-10-07] MEDS ORDERED: Sodium Chloride 0.9% 1,000 ML ONE (13:52)
[2018-10-07 13:58] LABS: BASO % 0.7 % (0.0-2.0); EOS # 0.3 K/uL (0.0-0.7); EOS % 8.7 % (0.0-4.0); HEMOGLOBIN 11.2 g/dL (11.0-16.0); LYMPH # 1.5 K/uL (1.0-4.3); LYMPH % 46.6 % (20.0-40.0); MEAN CELL VOLUME 85.3 fL (81.0-99.0); MEAN CORPUSCULAR HEMOGLOBIN 27.7 pg (27.0-31.0); MEAN CORPUSCULAR HGB CONC 32.5 g/dL (33.0-37.0); MEAN PLATELET VOLUME 8.2 fL (7.2-11.7); MONO # 0.4 K/uL (0.0-0.8); MONO % 11.4 % (0.0-10.0); NEUT % 32.6 % (50.0-75.0); NRBC % 0.2 % (0.0-2.0); RBC 4.04 Mil/uL (3.80-5.20); RED CELL DISTRIBUTION WIDTH 14.7 % (11.5-14.5); WHITE BLOOD COUNT 3.2 K/uL (4.8-10.8)
[2018-10-07 14:12] LABS: ALB/GLOB RATIO 1.3 (1.0-2.1); ALBUMIN 3.9 g/dL (3.5-5.0); ALT/SGPT 24 U/L (9-52); AST/SGOT 31 U/L (14-36); BLOOD UREA NITROGEN 10 mg/dL (7-17); CALCIUM 8.9 mg/dl (8.6-10.4); GFR NON-AFRICAN AMERICAN > 60; LIPASE 117 U/L (23-300)
--- NOTE | 2018-10-07 15:27 | RAD ---
Date of service: 10/07/2018 PROCEDURE: Radiographs of the chest and abdomen (obstructive series) HISTORY: abd pain, constipation, nausea COMPARISON: Chest x-ray performed 06/02/18 TECHNIQUE: AP radiograph of the chest, with upright and supine radiographs of the abdomen. FINDINGS: CHEST: Heart size appears within normal limits. No focal consolidation, significant pleural effusion, or definite pneumothorax. Please note that chest x-ray has limited sensitivity for the detection of pulmonary masses. ABDOMEN AND PELVIS: Mild constipation. Nonspecific bowel gas pattern. No definite free air. No acute osseous abnormality is detected. IMPRESSION: No focal consolidation. Mild constipation.
[2018-10-07 15:31] VITALS: BP 108/73; PULSE 59; TEMP 98
== END 2018-10-07 15:50 | disposition home or self-care (01) ==
LOC: C.ER 11:51
DX: K59.00 Constipation, unspecified (principal); N94.6 Dysmenorrhea, unspecified
CPT/HCPCS: 74022; 80053; 81001; 83690; 84702; 84703; 85025; 96361; 96374; 96375; 99285; J1885; J2405; J7030